=== PATIENT | male | born 1935 | race Caucasian/White ===

== ENCOUNTER 2021-10-04 14:57 | Inpatient (IN) | payer MEDICARE ==
[~2021-10-04] VITALS: Ht 185.4 cm; Wt 83.0 kg
[2021-10-04 15:41] LABS: BASOPHIL # 0.1 10^3/uL (0.0-0.1); BASOPHIL % 0.5 % (0.0-0.2); EOSINOPHIL # 0.2 10^3/uL (0.0-0.2); EOSINOPHIL % 1.7 % (0.0-5.0); LYMPHOCYTES # 1.75 10^3/uL1 (1.0-4.8); LYMPHOCYTES % 18.4 % (24.0-44.0); MEAN CORP HGB 31.8 pg (26-34); MONOCYTES # 0.8 10^3/uL (0.3-0.8); MONOCYTES % 8.7 % (5.0-12.0); NEUTROPHIL # 6.7 10^3/uL (1.8-7.7); NEUTROPHILS % 70.4 % (41.0-85.0); PLATELET COUNT 152 10^3/uL (150-400); RED CELL DISTRIBUTION WIDTH 13.1 % (11.5-14.5)
[2021-10-04 15:43] LABS: BILIRUBIN,URINE NEGATIVE (NEGATIVE); UROBILINOGEN,URINE 0.2 E.U./dL (0.2)
[2021-10-04 15:59] LABS: CARBON DIOXIDE 28.5 mmol/L (20.0-32)
--- NOTE | 2021-10-05 09:24 | PCM.EKG ---
[facility] Test Date: 2021-10-04 Test Time: 15:58:25 Pat Name: SHAYY STEELE Department: Room: Gender: M Research Associate Quality Control Qc: 0820 : 1935 Requested By: CIERA SCHMITT Order Number: [id number] Reading MD: Measurements Intervals Iraan Rate: 57 P: 17 MA: 319 QRS: -54 QRSD: 83 T: 60 QT: 420 QTc: 409 Interpretive Statements Sinus rhythm Prolonged MA interval Abnormal R-wave progression, early transition Inferior infarct, old Baseline wander in lead(s) V6 No previous ECG available for comparison Please click the below link to view image of tracing.
[2021-10-05] MEDS ORDERED: OMEG-69 PO (10:43)
[2021-10-05] MEDS ORDERED: VITA25006 PO (10:43)
[2021-10-05] MEDS ORDERED: APIX5TAB PO (10:43)
[2021-10-05] MEDS ORDERED: NAPR220C2 PO (10:43)
[2021-10-05] MEDS ORDERED: ACET325T12 PO (10:43)
[2021-10-09] VITALS (9 sets, daily range): BP systolic 100–166; BP diastolic 50–74
[2021-10-09] MEDS ORDERED: ANCEF 3 GM in NS 100ML 100 ML IV ONE (07:00)
[2021-10-09] MEDS ORDERED: LACTATED RINGERS 1,000 ML IV SCH ×2 (07:00→10:00)
[2021-10-09] MEDS ORDERED: BACTROBAN OINTMENT TP ONE (07:00)
[2021-10-09] MEDS ORDERED: CELEBREX PO ONE (08:20)
[2021-10-09] MEDS ORDERED: DECADRON IV ONE (08:20)
[2021-10-09] MEDS ORDERED: OFIRMEV IV ONE (08:20)
[2021-10-09] MEDS ORDERED: ULTRAM PO ONE (08:20)
[2021-10-09] MEDS ORDERED: NEURONTIN PO ONE (08:20)
[2021-10-09] MEDS ORDERED: ULTRAM PO PRN ×2 (10:00)
[2021-10-09] MEDS ORDERED: ZOFRAN IV PRN (10:00)
--- NOTE | 2021-10-09 12:25 | OPH ---
DATE OF SURGERY: 10/09/2021 DICTATOR NAME: Giacomo Boateng MD PREOPERATIVE DIAGNOSIS: Osteoarthritis of the right hip. POSTOPERATIVE DIAGNOSIS: Osteoarthritis of the right hip. OPERATIVE PROCEDURE: Right total hip arthroplasty using Medacta AMIS size 7 cemented femoral stem, a size 62 Versafit acetabular cup, a 28 mm ceramic head with a -3.5 neck length. SURGEON: Giacomo Boateng MD ANESTHESIA: Spinal. BLOOD LOSS: 600. DRAINS: None. DESCRIPTION OF INDICATIONS: The patient is an 86-year-old male who was at home with his and having pain about the right hip off and on for several years, but in the last year, the right hip pain has gotten much worse. He complains of pain with just household ambulation and limping. He has to use a walker and a cane to ambulate. He is on Eliquis and can only take Tylenol for the pain. Exam shows that he got about a 30-degree hip flexion contracture. There is no internal rotation and about 30 degrees of external rotation with pain. The x-ray showed that he is circumferentially [id number] about the right hip. He was taken to the operating room today for right total hip arthroplasty for pain relief. DESCRIPTION OF PROCEDURE: The patient was placed in the operating table in the supine position after being given a spinal anesthetic. Right foot and ankle were well padded and placed in the traction boot. Right lower extremity was then sterilely prepped and draped. The patient had the anterior incision made about the hip. The incision was taken through the skin and the subcutaneous tissues. Tensor fascia was opened in line with the skin incision. The right knee muscle belly was retracted posteriorly. The rectus fascia was opened and the rectus was retracted medially. The circumflex vessels were then identified and coagulated with the Aquamantys device. The capsular incision was then made and the capsule was retracted proximally and posteriorly. A femoral neck cut was then made with the power saw and the femoral head was removed with a corkscrew device. The patient had the labrum excised. The posterior ligaments were released. The acetabulum was then sequentially reamed up to a size 62. A 62 trial had a good fit clinically as well as radiographically. The trial component was removed and the wounds were irrigated. He had some small cysts that were curetted and bone grafted. A size 62 Versafit cup was then impacted into position. C-arm views showed satisfactory tilt and version. The patient then had the hip placed in maximal external rotation as well as hyperextension. The canal was opened with a curette. The box chisel was then used and then the proximal opening reamers were used. The patient had the canal sequentially rasped up to a size 7. The size 7 trial was used and we used a -3.5 neck and a 28 mm head with a 62 liner. The hip had good internal and external rotation with no laxity. The C-arm view showed satisfactory sizing and alignment of the components as well as leg lengths. The patient then had the trial components removed from the hip. The wounds were irrigated. The canal was cleared with a regular canal brush and then subsequently with the irrigating canal brush. A large cement restrictor was placed at 13 cm below the calcar cut. The canal again was irrigated with the irrigating canal brush and then dried with a tampon device. The cement was then introduced and packed. A size 7 AMIS stem was then cemented into position. Once the cement was hardened, then the 28 mm ceramic head, -3.5 neck length and the 62 liner were impacted onto the Ramirez taper neck. The hip was reduced. Again, there was good stability clinically and radiographically, the alignment and the sizing of the components appeared to be satisfactory. Wounds were then irrigated with Betadine-containing solution for 3 minutes. The capsule was closed after the Betadine was irrigated from the wound with a #2 PDS in interrupted manner. The tensor fascia was closed with a #2 barbed PDS in a running manner. The subcutaneous was closed with a barbed 2-0 Monocryl. The skin was closed with shavonne and a suction Prevena type dressing was applied. The patient was sent to recovery room in stable condition. Giacomo Boateng MD DR: MARY/DONALDO RAMSO: [id number] RECEIPT: [id number]
[2021-10-09] MEDS: TYLENOL PO SCH ×3 (13:12→23:24)
[2021-10-09] MEDS: ANCEF 2 GM/D5W 50ML IV SCH ×2 (13:39→21:18)
--- NOTE | 2021-10-09 14:48 | NUR ---
DISCHARGE PLAN - [facility] [email or web address] FOLLOWING PATIENT'S ADMIT TO [facility] FOLLOWING SURGERY. PATIENT CURRENTLY LIVES@HOME WITH SPOUSE AND DENIES HAVING A WALKER. CM OFFERED TO ORDER PATIENT A WALKER AND PATIENT AGREEABLE. PATIENT REQUEST TO GET WALKER HERE IN [place]. PATIENT CURRENTLY SEE'S Peyton BUTLER IN [place] FOR PCP. PATIENT REQUEST CM RETURN AFTER PATIENT'S SPOUSE COMES BACK AND DISCUSS DISCHARGE PLANS. CM FAXED REFERRAL TO [facility] FOR WALKER. FAX CONFIRMATION CONFIRMED COMPLETE. CM CONTACTED [email or web address] AND INFORMED OF GIAN JONES. Addendum: 10/09/21 at 1500 by Susana Harris RN,Case Managegema RN CM CONTACTED [facility] AND INFORMED THAT PATIENT SEE'S LAZ SHAW. APPT MADE FOR OCTOBER 23, 2021@1:15PM. CM WILL FAX PATIENT'S CLINICALS AFTER DISCHARGE TO [facility]@[phone] AFTER DISCHARGE. CM ENTERED APPT TIME IN PATIENT'S VISIT REPORT FOR [email or web address]. Addendum: 10/10/21 at 1752 by Susana Harris RN,Case Managemen RN [email or web address] THIS AM AND SPOKE WITH PATIENT AND SPOUSE AND OT THERAPIST ELENA COFFMAN ABOUT DISCHARGE PLANS AND NEEDS. PATIENT CURRENTLY LIVES@HOME WITH SPOUSE IN [place], [place] AND IND WITH ADL PRIOR TO SURGERY. PATIENT SEEN YESTERDAY AND REQUESTED WALKER. [facility] DELIVERED PATIENT WALKER TODAY. PATIENT AND SPOUSE INFORMED OF F/U APPT MADE WITH LAZ SHAW NP FOR 10/23/21@1:15. CM WROTE APPT TIME ON PATIENT'S MARKER BOARD. PATIENT AGREEABLE WITH APPT TIME. PATIENT AND SPOUSE EDUCATED ON RESOURCES AND REQUEST [facility] OUT OF [place]. PATIENT'S SPOUSE SIGNS [facility] CHOICE LETTER AND PRIME VENDOR OF CHOICE LETTER FOR CHART. CM CONTACTED [facility] AND INFORMED [facility] OF NEW REFERRAL. [facility] WILL CHECK TO SEE IF PATIENT IS IN NETWORK AND LET CM KNOW. CM FAXED INITIAL CLINICALS TO [facility]@[phone]. FAX CONFIRMATION CONFIRMED COMPLETE. CM WILL CONTINUE TO MONITOR. Addendum: 10/11/21 at 1412 by Susana Harris RN,Case Managemen RN [facility] NOTIFIED CM THAT PATIENT WAS OUT OF NETWORK AND THEY COULD NOT ACCEPT PATIENT. CM CONTACTED [employer] AND FAXED FACE SHEET TO [email or web address]. CM RECEIVED PHONE CALL FROM [employer] AND PATIENT IS OUT OF NETWORK WITH INSURANCE. CM FAXED [facility] AND FAXED INITIAL CLINICALS TO [facility]. AWAITING TO SEE IF PATIENT IS IN NETWORK THIS AM. [email or web address] THIS AM AND VISITED WITH PATIENT AND SPOUSE AND INFORMED THEM THAT [facility] DID NOT TAKE PATIENT'S INSURANCE. PATIENT AND SPOUSE AGREEABLE FOR CM TO ASSIST WITH HOME HEALTH THAT WORKS WITH PATIENT'S INSURANCE. PATIENT REPORTS THAT [facility] DELIVERED PATIENT'S NEW WALKER YESTERDAY. CM INFORMED PATIENT AND SPOUSE THATIF [facility] WAS OUT OF NETWORK THAT CM WOULD NOTIFY PATIENT AND SPOUSE. PATIENT AND SPOUSE REMINDED OF F/U APPT WITH LAZ SHAW NP ON 10/23/21@1:15. PATIENT AND SPOUSE DENY ANY OTHER DISCHARGE NEEDS. PREPARING FOR DISCHARGE THIS AM. CM CONTACTED [facility] THIS AFTERNOON AND SPOKE WITH ALVINA AND SHE CHECKED TO MAKE SURE THAT THEY HAD ACCEPTED PATIENT. ALVINA PHONED CM BACK AND INFORMED THAT PATIENT WAS SET UP WITH [facility] AND THEY WOULD NOTIFY PATIENT AND SET UP HOME HEALTH VISIT. CM FAXED DISCHARGE CLINICALS TO [facility]@[phone]. FAX CONFIRMATION CONFIRMED COMPLETE. CM FAXED COMPLETE CLINICALS TO LAZ SHAW@[phone] WITH NOTIFICATION OF HOME HEALTH WITH [facility] AND F/U APPT. FAX CONFIRMATION CONFIRMED COMPLETE.
[2021-10-09 21:33] LABS: MEAN CORP HGB 32.1 pg (26-34); RED CELL DISTRIBUTION WIDTH 12.9 % (11.5-14.5)
--- NOTE | 2021-10-09 22:09 | DIREP ---
PROCEDURE:XRAY HIP MIN 2VW-RT COMPARISON:None. INDICATIONS:POST OP TOTAL RT HIP FINDINGS: BONES:Right hip cedrick arthroplasty. No visible displaced fracture. Small enthesophyte at the ischial tuberosities. Small left femoral head and acetabular osteophytes. Small left greater trochanter enthesophyte. JOINTS:No dislocation SOFT TISSUES:Bubbles of gas in the soft tissues around the right hip and lateral right hip skin shavonne consistent with recent surgery. OTHER:No additional findings. CONCLUSION:Changes of recent hip arthroplasty. Moderate left hip arthropathy. Dictated by: Gurdeep Munoz M.D. on 10/09/2021 at 10:07 PM
--- NOTE | 2021-10-09 22:10 | PCM.HP ---
History of Present Illness History of Present Illness 86 year old male presents with complaints of right hip pain for the last year, worsening recently. He states he has pain to the hip "all the time". He complains of pain with household ambulation and limping. He uses a walker while out in public and a cane at home due to the pain. He uses tylenol for pain with minimal relief. He cannot take NSAIDs because he is on blood thinners currently. Past Medical History Heme/Onc: Other (History of blood clots "about 6 months ago" - per patient) Past Surgical History: Other (Cardiac angioplasty with stent placement) Past Social History Smoke: 1 pack per day Alcohol: none Drugs: None Lives: with Family Review of Systems Constitutional: No: Fever, Chills, Sweats, Weakness, Malaise, Other Eyes: No: Pain, Vision change, Conjunctivae inflammation, Eyelid inflammation, Other, Redness ENT: No: Ear pain, Ear discharge, Nose pain, Nose discharge, Nose congestion, Mouth pain, Mouth swelling, Throat pain, Throat swelling, Other Respiratory: No: Cough, Dry, Shortness of breath, SOB with excertion, Wheezing, Hemoptysis, Pleuritic Pain, Sputum, Wheezing, Other Cardiovascular: No: Chest Pain, Palpitations, Orthopnea, Paroxysmal Noc. Dyspnea, Edema, Lt Headedness, Other Gastrointestinal: No: Nausea, Vomiting, Abdominal Pain, Diarrhea, Constipation, Melena, Hematochezia, Other Genitourinary: No Dysuria, No Frequency, No Incontinence, No Hematuria, No Retention, No Other Musculoskeletal: leg pain (RLE pain) Skin: No: Rash, Lesions, Jaundice, Bruising, Other Neurological: No: Weakness, Numbness, Incoordination, Change in speech, Confusion, Seizures, Other Allergies: Coded Allergies: No Known Allergies (Unverified , 10/05/21) Scheduled Apixaban (Eliquis), 5 MG PO BID, (Reported) Poteet-3 Fatty Acids/Fish Oil (Fish Oil 1,000 Mg Softgel), 1 CAP PO QD, (Reported) Vitamin D3/Folic Acid (Noxifol-D3 2,500 Unit-1 mg Tab), 1 TAB PO QD, (Reported) Scheduled PRN Acetaminophen (Tylenol), 650 MG PO BID PRN for PAIN 4 - 6, (Reported) Naproxen Sodium (Aleve), 220 MG PO DAILY24 PRN for PAIN 4 - 6, (Reported) VTE VTE Risk Total Score: 3 VTE Risk Score VTE Risk: Score 0-1 = Low Risk (Aggressive mobilization; early ambulation; no VTE prophylaxis required) Score 2: Moderate Risk (Intermittent/Pneumatic Compression Device OR Lovenox/Heparin/Coumadin) Score 3-4: High Risk (Intermittent/Pneumatic Compression Device AND Lovenox/Heparin/Coumadin) Score > or =5: Highest Risk (Intermittent/Pneumatic Compression Device AND Lovenox/Heparin/Coumadin) Antico:Hep/LMWH/Coum/Xarelto: Yes Mechanical device ordered: Yes VTE VTE Present on Admission: No Currently receiving anticoagul: Yes VTE Risk Total Score: 3 Exam Vital Signs Vital Signs Date Time Temp Pulse Resp B/P (MAP) Pulse Ox O2 Delivery O2 Flow Rate FiO2 10/09/21 21:02 60 16 94 Nasal Cannula* 2 N/A Non-Rebreather 10/09/21 20:23 97.4 100/50 (67) General Appearance: Alert, Oriented X3, Cooperative HEENT: Atraumatic, PERRLA, Other Respiratory: Clear to auscultation, Normal air movement Cardiovascular: Regular rate, Normal S1, Normal S2 Abdominal: Normal bowel sounds, Soft, No tenderness Extremities: No clubbing, No cyanosis, Normal pulses, Other (He has 130 degrees of active forward felxion about the hip, 10-20 degrees of internal and external rotation of the hip with quite a bit of pain. He has a hip flexion contracture of about 20 degrees as well. He has a positive limp.) Skin: No rash, No breakdown, No lesions Neuro: Normal speech, Normal tone, Sensation intact, Cranial nerves 3-12 NL Psych/Mental Status: Mental status NL, Mood NL Assessment/Plan Assessment/Plan Assessment/Plan Radiology: Xrays show [id number] about the right hip circumferentially. There is some shortening to the right leg radiographically. Assessment: Osteoarthritis of the right hip Plan: Right Total Hip Arthroplasty Problems: (1) Osteoarthritis of right hip Status: Chronic ICD Code: M16.11 - Unilateral primary osteoarthritis, right hip SNOMED: [id number] Patient History: Alzheimer's disease G8 SISTER, , Age:60 years and older FH: arthritis G8 BROTHER No known health problems G8 BROTHER G8 BROTHER, , Age:Childhood 19 CHILD 19 CHILD No Family History of: Asthma Cerebrovascular disorder Chronic obstructive pulmonary disease Congestive heart failure Diabetes insipidus Diabetes mellitus Hypertension Parkinson's disease MOLLY CIFUENTES Oct 09, 2021 22:10
[2021-10-10 01:13] VITALS: BP 102/59
[2021-10-10 04:42] LABS: MEAN CORP HGB 32.2 pg (26-34)
[2021-10-10] MEDS: ANCEF 2 GM/D5W 50ML IV SCH (05:24)
[2021-10-10] MEDS: TYLENOL PO SCH ×4 (05:25→23:58)
[2021-10-10 05:36] VITALS: BP 109/60
[2021-10-10 07:05] VITALS: BP 113/57
[2021-10-10] MEDS: COLACE PO SCH (08:16)
[2021-10-10] MEDS: PEPCID PO SCH (08:16)
--- NOTE | 2021-10-10 08:50 | PRM.PN ---
Subjective Subjective Date: Oct 10, 2021 Time: 08:49 Subjective Pain ok VSS UP in chair HGB 13.4 NVM+ Start PT Patient History: Alzheimer's disease G8 SISTER, , Age:60 years and older FH: arthritis G8 BROTHER No known health problems G8 BROTHER G8 BROTHER, , Age:Childhood 19 CHILD 19 CHILD No Family History of: Asthma Cerebrovascular disorder Chronic obstructive pulmonary disease Congestive heart failure Diabetes insipidus Diabetes mellitus Hypertension Parkinson's disease VTE VTE Risk Total Score: 3 VTE Risk Score VTE Risk: Score 0-1 = Low Risk (Aggressive mobilization; early ambulation; no VTE prophylaxis required) Score 2: Moderate Risk (Intermittent/Pneumatic Compression Device OR Lovenox/Heparin/Coumadin) Score 3-4: High Risk (Intermittent/Pneumatic Compression Device AND Lovenox/Heparin/Coumadin) Score > or =5: Highest Risk (Intermittent/Pneumatic Compression Device AND Lovenox/Heparin/Coumadin) Antico:Hep/LMWH/Coum/Xarelto: Yes Mechanical device ordered: Yes Review of Systems Constitutional: No: Fever, Chills, Sweats, Weakness, Malaise, Other Eyes: No: Pain, Vision change, Conjunctivae inflammation, Eyelid inflammation, Other, Redness ENT: No: Ear pain, Ear discharge, Nose pain, Nose discharge, Nose congestion, Mouth pain, Mouth swelling, Throat pain, Throat swelling, Other Respiratory: No: Cough, Dry, Shortness of breath, SOB with excertion, Wheezing, Hemoptysis, Pleuritic Pain, Sputum, Wheezing, Other Cardiovascular: No: Chest Pain, Palpitations, Orthopnea, Paroxysmal Noc. Dyspnea, Edema, Lt Headedness, Other Gastrointestinal: No: Nausea, Vomiting, Abdominal Pain, Diarrhea, Constipation, Melena, Hematochezia, Other Genitourinary: No Dysuria, No Frequency, No Incontinence, No Hematuria, No Retention, No Other Musculoskeletal: leg pain (RLE pain) Skin: No: Rash, Lesions, Jaundice, Bruising, Other Neurological: No: Weakness, Numbness, Incoordination, Change in speech, Confusion, Seizures, Other Allergies: Coded Allergies: No Known Allergies (Unverified , 10/05/21) Scheduled Apixaban (Eliquis), 5 MG PO BID, (Reported) Avon-3 Fatty Acids/Fish Oil (Fish Oil 1,000 Mg Softgel), 1 CAP PO QD, (Reported) Vitamin D3/Folic Acid (Noxifol-D3 2,500 Unit-1 mg Tab), 1 TAB PO QD, (Reported) Scheduled PRN Acetaminophen (Tylenol), 650 MG PO BID PRN for PAIN 4 - 6, (Reported) Naproxen Sodium (Aleve), 220 MG PO DAILY24 PRN for PAIN 4 - 6, (Reported) Objective Vitals and I/O Vital Sign - Last 24 Hours 10/09/21 10/09/21 10/09/21 10/09/21 11:48 11:48 11:50 11:55 Temp 97.1 Pulse 50 49 47 Resp 14 14 14 B/P (MAP) 102/53 (69) 106/66 (79) 120/58 (78) Pulse Ox 98 99 100 O2 Delivery Non-Rebreather Non-Rebreather Non-Rebreather O2 Flow Rate 15.00 15.00 15.00 15.00 10/09/21 10/09/21 10/09/21 10/09/21 12:05 12:15 12:55 13:59 Temp 97.2 Pulse 54 48 58 Resp 16 16 16 B/P (MAP) 122/64 (83) 117/63 (81) 114/56 (75) Pulse Ox 100 100 93 O2 Delivery Non-Rebreather Non-Rebreather Nasal Cannula Nasal Cannula* O2 Flow Rate 15.00 15.00 2.00 2 FiO2 28 10/09/21 10/09/21 10/09/21 10/09/21 14:27 14:27 14:45 17:15 Pulse 67 Resp 16 16 18 B/P (MAP) 104/57 (73) Pulse Ox 2 90 O2 Delivery Nasal Cannula* Nasal Cannula* O2 Flow Rate 2 2 FiO2 28 28 10/09/21 10/09/21 10/09/21 10/10/21 20:23 21:02 23:58 01:13 Temp 97.4 97.1 Pulse 55 60 58 Resp 16 16 15 B/P (MAP) 100/50 (67) 102/59 (73) Pulse Ox 90 94 89 O2 Delivery Nasal Cannula* Nasal Cannula* Nasal Cannula Nasal Cannula* Non-Rebreather O2 Flow Rate 3 2 3.00 3 FiO2 32 N/A 32 10/10/21 10/10/21 10/10/21 10/10/21 05:36 07:05 07:43 08:30 Temp 97.9 98.7 Pulse 58 57 88 Resp 16 18 16 B/P (MAP) 109/60 (76) 113/57 (75) Pulse Ox 95 91 90 O2 Delivery Nasal Cannula* Room Air* Room Air Room Air* Nasal Cannula* Non-Rebreather O2 Flow Rate 3 0 0 FiO2 32 21 N/A Intake and Output 10/10/21 07:00 Intake Total 7662 ml Output Total 850 ml Balance 6812 ml General: Alert, Oriented X3, Cooperative HEENT: Atraumatic, PERRLA, Other Lungs: Clear to auscultation, Normal air movement Heart: Regular rate, Normal S1, Normal S2 Abdomen: Normal bowel sounds, Soft, No tenderness Extremities: No clubbing, No cyanosis, Normal pulses, Other (He has 130 degrees of active forward felxion about the hip, 10-20 degrees of internal and external rotation of the hip with quite a bit of pain. He has a hip flexion contracture of about 20 degrees as well. He has a positive limp.) Neuro: Normal speech, Normal tone, Sensation intact, Cranial nerves 3-12 NL Psych/Mental Status: Mental status NL, Mood NL All Results(Lab/Rad) Laboratory Tests Test 10/09/21 21:20 10/10/21 04:09 White Blood Count 17.4 10^3/uL 16.7 10^3/uL Red Blood Count 4.43 10^6/uL 4.16 10^6/uL Hemoglobin 14.2 g/dL 13.4 g/dL Hematocrit 42.5 % 39.4 % Mean Corpuscular Volume 95.9 fL 94.7 fL Mean Corpuscular Hemoglobin 32.1 pg 32.2 pg Mean Corpuscular Hemoglobin Concent 33.4 g/dL 34.0 g/dL Red Cell Distribution Width 12.9 % 13.0 % Platelet Count 130 10^3/uL 138 10^3/uL Mean Platelet Volume 9.4 fL 9.8 fL Current Medications Medications (Trade) Dose Ordered Sig/Perry Route PRN Reason Start Time Stop Time Status Last Admin Dose Admin Cefazolin Sodium 3 gm/Sodium Chloride 100 ml @ 100 mls/hr OT ONCE IV 10/09/21 07:00 10/09/21 12:51 DC 10/09/21 08:43 Mupirocin (Bactroban Ointment) 1 gm OT ONCE TP 10/09/21 07:00 10/09/21 12:49 DC 10/09/21 08:14 Celecoxib (Celebrex) 400 mg OT ONCE PO 10/09/21 08:20 10/09/21 12:49 DC 10/09/21 08:26 Gabapentin (Neurontin) 600 mg OT ONCE PO 10/09/21 08:20 10/09/21 12:49 DC 10/09/21 08:27 Tramadol HCl (Ultram) 100 mg OT ONCE PO 10/09/21 08:20 10/09/21 12:50 DC 10/09/21 08:28 Acetaminophen (Ofirmev) 500 mg OT ONCE IV 10/09/21 08:20 10/09/21 12:50 DC 10/09/21 08:29 Tramadol HCl (Ultram) 50 mg Q6H PRN PO PAIN 1 - 3 10/09/21 10:00 11/08/21 09:59 Tramadol HCl (Ultram) 100 mg Q6H PRN PO PAIN 4 - 6 10/09/21 10:00 11/08/21 09:59 Docusate Sodium (Colace) 100 mg DAILY PO 10/10/21 09:00 11/09/21 08:59 10/10/21 08:16 Cefazolin Sodium/ Dextrose (Ancef 2 Gm/D5W 50ml) 2 gm Q8 IV 10/09/21 14:00 10/10/21 06:01 DC 10/10/21 05:24 Famotidine (Pepcid) 20 mg DAILY PO 10/10/21 09:00 11/09/21 08:59 10/10/21 08:16 Ketorolac Tromethamine (Toradol) 15 mg Q6H PRN IV PAIN 7 - 10 10/09/21 10:00 10/14/21 09:59 Acetaminophen (Tylenol) 1,000 mg Q6HR PO 10/09/21 12:00 11/08/21 11:59 10/10/21 05:25 Ondansetron HCl (Zofran) 4 mg Q4H PRN IV NAUSEA / VOMITING 10/09/21 10:00 11/08/21 09:59 Course Sepsis Screening Results: Posi: POSITIVE Sepsis Qualifier/Stage: SEPSIS RISK Vitals & review Data Vital Sign - Last 24 Hours 10/09/21 10/09/21 10/09/21 10/09/21 11:48 11:48 11:50 11:55 Temp 97.1 Pulse 50 49 47 Resp 14 14 14 B/P (MAP) 102/53 (69) 106/66 (79) 120/58 (78) Pulse Ox 98 99 100 O2 Delivery Non-Rebreather Non-Rebreather Non-Rebreather O2 Flow Rate 15.00 15.00 15.00 15.00 10/09/21 10/09/21 10/09/21 10/09/21 12:05 12:15 12:55 13:59 Temp 97.2 Pulse 54 48 58 Resp 16 16 16 B/P (MAP) 122/64 (83) 117/63 (81) 114/56 (75) Pulse Ox 100 100 93 O2 Delivery Non-Rebreather Non-Rebreather Nasal Cannula Nasal Cannula* O2 Flow Rate 15.00 15.00 2.00 2 FiO2 28 10/09/21 10/09/21 10/09/21 10/09/21 14:27 14:27 14:45 17:15 Pulse 67 Resp 16 16 18 B/P (MAP) 104/57 (73) Pulse Ox 2 90 O2 Delivery Nasal Cannula* Nasal Cannula* O2 Flow Rate 2 2 FiO2 28 28 10/09/21 10/09/21 10/09/21 10/10/21 20:23 21:02 23:58 01:13 Temp 97.4 97.1 Pulse 55 60 58 Resp 16 16 15 B/P (MAP) 100/50 (67) 102/59 (73) Pulse Ox 90 94 89 O2 Delivery Nasal Cannula* Nasal Cannula* Nasal Cannula Nasal Cannula* Non-Rebreather O2 Flow Rate 3 2 3.00 3 FiO2 32 N/A 32 10/10/21 10/10/21 10/10/21 10/10/21 05:36 07:05 07:43 08:30 Temp 97.9 98.7 Pulse 58 57 88 Resp 16 18 16 B/P (MAP) 109/60 (76) 113/57 (75) Pulse Ox 95 91 90 O2 Delivery Nasal Cannula* Room Air* Room Air Room Air* Nasal Cannula* Non-Rebreather O2 Flow Rate 3 0 0 FiO2 32 21 N/A Intake and Output 10/10/21 07:00 Intake Total 7662 ml Output Total 850 ml Balance 6812 ml Laboratory Tests Test 10/09/21 21:20 10/10/21 04:09 White Blood Count 17.4 10^3/uL 16.7 10^3/uL Red Blood Count 4.43 10^6/uL 4.16 10^6/uL Hemoglobin 14.2 g/dL 13.4 g/dL Hematocrit 42.5 % 39.4 % Mean Corpuscular Volume 95.9 fL 94.7 fL Mean Corpuscular Hemoglobin 32.1 pg 32.2 pg Mean Corpuscular Hemoglobin Concent 33.4 g/dL 34.0 g/dL Red Cell Distribution Width 12.9 % 13.0 % Platelet Count 130 10^3/uL 138 10^3/uL Mean Platelet Volume 9.4 fL 9.8 fL Current Medications Medications (Trade) Dose Ordered Sig/Perry PRN Reason Start Time Stop Time Status Last Admin Acetaminophen (Tylenol) 1,000 mg Q6HR 10/09/21 12:00 11/08/21 11:59 10/10/21 05:25 Docusate Sodium (Colace) 100 mg DAILY 10/10/21 09:00 11/09/21 08:59 10/10/21 08:16 Famotidine (Pepcid) 20 mg DAILY 10/10/21 09:00 11/09/21 08:59 10/10/21 08:16 Ketorolac Tromethamine (Toradol) 15 mg Q6H PRN PAIN 7 - 10 10/09/21 10:00 10/14/21 09:59 Ondansetron HCl (Zofran) 4 mg Q4H PRN NAUSEA / VOMITING 10/09/21 10:00 11/08/21 09:59 Tramadol HCl (Ultram) 50 mg Q6H PRN PAIN 1 - 3 10/09/21 10:00 11/08/21 09:59 Tramadol HCl (Ultram) 100 mg Q6H PRN PAIN 4 - 6 10/09/21 10:00 11/08/21 09:59 LEVEL 1 SEPSIS INFECTION CRITE: ABX Therapy, Recent Invasive Procedure LEVEL 2-SIRS (LIST ALL THAT AP: WBC>[id number] Cardiovascular Evidence: Not Assessed or None Hematologic Evidence: None/Not assessed Hepatic Evidence: None/Not assessed Metabolic Evidence: None/Not assessed Neurological Evidence: None/Not assessed Respiratory Evidence: Need for O2 to keep>90%, O2 SAT<90room air Renal Evidence: None/Not assessed O2 Sat by Pulse Oximetry: 90 Oxygen Flow Rate: 3.00 Assessment/Plan Assessment/Plan Assessment/Plan Radiology: Xrays show ovtc-rx-fokr about the right hip circumferentially. There is some shortening to the right leg radiographically. Assessment: Osteoarthritis of the right hip Plan: Right Total Hip Arthroplasty CIERA SCHMITT MD Oct 10, 2021 08:50
--- NOTE | 2021-10-10 10:09 | NUR ---
[employer] CATHE[employer] JANET'Lisa.
[2021-10-10 11:16] VITALS: BP 104/56
[2021-10-10 15:18] VITALS: BP 116/54
[2021-10-10] MEDS: TORADOL IV PRN (16:46)
--- NOTE | 2021-10-10 19:47 | NUR ---
Peyton Tompkins called and notified of pt having muscle spasms. Valium 5mg po Q6hrs PRN ordered and for Bed Alarm.
[2021-10-10 19:56] VITALS: BP 105/55
[2021-10-10] MEDS ORDERED: VALIUM PO PRN (20:00)
[2021-10-11 00:21] VITALS: BP 128/63
[2021-10-11 04:14] VITALS: BP 121/65
[2021-10-11 04:48] LABS: MEAN CORP HGB 31.8 pg (26-34); RED CELL DISTRIBUTION WIDTH 13.1 % (11.5-14.5)
[2021-10-11] MEDS: TYLENOL PO SCH (05:56)
[2021-10-11] MEDS: TORADOL IV PRN (07:04)
[2021-10-11 07:22] VITALS: BP 115/55
[2021-10-11] MEDS: COLACE PO SCH (09:20)
[2021-10-11] MEDS: PEPCID PO SCH (09:21)
[2021-10-11] MEDS ORDERED: ELIQUIS PO SCH (09:30)
[2021-10-11] MEDS ORDERED: ACET500T73 PO (11:21)
[2021-10-11] MEDS ORDERED: TRAM50TA PO (11:21)
[2021-10-11 11:25] VITALS: BP 115/61
--- NOTE | 2021-10-11 11:26 | NUR ---
PRESCRIPTIONS PRESCRIPTIONS CALLED INTO [facility] IN [place], [place] BY THIS NURSE AT THIS TIME.
--- NOTE | 2021-10-11 11:32 | PRM.DC ---
Discharge Summary Date of Discharge: Oct 11, 2021 Time of Request to Discharge: 09:00 Patient History: Alzheimer's disease G8 SISTER, , Age:60 years and older FH: arthritis G8 BROTHER No known health problems G8 BROTHER G8 BROTHER, , Age:Childhood 21 CHILD 21 CHILD No Family History of: Asthma Cerebrovascular disorder Chronic obstructive pulmonary disease Congestive heart failure Diabetes insipidus Diabetes mellitus Hypertension Parkinson's disease Exam/Vitals Vital Signs Date Time Temp Pulse Resp B/P (MAP) Pulse Ox O2 Delivery O2 Flow Rate FiO2 10/11/21 09:06 88 16 92 Room Air* 0 21 10/11/21 07:22 98.2 115/55 (75) General: Alert, Oriented X3, Cooperative HEENT: Atraumatic, PERRLA Neck: Supple, No JVD Lungs: Clear to auscultation, Normal air movement Heart: Regular rate, Normal S1, Normal S2 Abdomen: Normal bowel sounds, Soft Extremities: No cyanosis, Normal pulses, Other ([place] wound vac in place over surgical incision to right hip) Skin: No rashes, No breakdown, No significant lesion Neuro: Normal speech, Normal tone, Sensation intact, Cranial nerves 3-12 NL Psych/Mental Status: Mental status NL, Mood NL Scheduled Acetaminophen (Acetaminophen), 2 TAB PO Q6HR Apixaban (Eliquis), 5 MG PO BID, (Reported) [place]-3 Fatty Acids/Fish Oil (Fish Oil 1,000 Mg Softgel), 1 CAP PO QD, (Reported) Vitamin D3/Folic Acid (Noxifol-D3 2,500 Unit-1 mg Tab), 1 TAB PO QD, (Reported) Scheduled PRN Tramadol Hcl (Tramadol Hcl), 1-2 TAB PO Q6HR PRN for PAIN 4 - 6 Discontinued Medications Acetaminophen (Tylenol), 650 MG PO BID PRN for PAIN 4 - 6, (Reported) Discontinued Reason: HOLD Naproxen Sodium (Aleve), 220 MG PO DAILY24 PRN for PAIN 4 - 6, (Reported) Discontinued Reason: HOLD Sepsis Evaluation @ Discharge Vital Sign - Last 24 Hours 10/09/21 10/09/21 10/09/21 10/09/21 11:48 11:48 11:50 11:55 Temp 97.1 Pulse 50 49 47 Resp 14 14 14 B/P (MAP) 102/53 (69) 106/66 (79) 120/58 (78) Pulse Ox 98 99 100 O2 Delivery Non-Rebreather Non-Rebreather Non-Rebreather O2 Flow Rate 15.00 15.00 15.00 15.00 10/09/21 10/09/21 10/09/21 10/09/21 12:05 12:15 12:55 13:59 Temp 97.2 Pulse 54 48 58 Resp 16 16 16 B/P (MAP) 122/64 (83) 117/63 (81) 114/56 (75) Pulse Ox 100 100 93 O2 Delivery Non-Rebreather Non-Rebreather Nasal Cannula Nasal Cannula* O2 Flow Rate 15.00 15.00 2.00 2 FiO2 28 10/09/21 10/09/21 10/09/21 10/09/21 14:27 14:27 14:45 17:15 Pulse 67 Resp 16 16 18 B/P (MAP) 104/57 (73) Pulse Ox 2 90 O2 Delivery Nasal Cannula* Nasal Cannula* O2 Flow Rate 2 2 FiO2 28 28 10/09/21 10/09/21 10/09/21 10/10/21 20:23 21:02 23:58 01:13 Temp 97.4 97.1 Pulse 55 60 58 Resp 16 16 15 B/P (MAP) 100/50 (67) 102/59 (73) Pulse Ox 90 94 89 O2 Delivery Nasal Cannula* Nasal Cannula* Nasal Cannula Nasal Cannula* Non-Rebreather O2 Flow Rate 3 2 3.00 3 FiO2 32 N/A 32 10/10/21 10/10/21 10/10/21 10/10/21 05:36 07:05 07:43 08:30 Temp 97.9 98.7 Pulse 58 57 88 Resp 16 18 16 B/P (MAP) 109/60 (76) 113/57 (75) Pulse Ox 95 91 90 O2 Delivery Nasal Cannula* Room Air* Room Air Room Air* Nasal Cannula* Non-Rebreather O2 Flow Rate 3 0 0 FiO2 32 21 N/A Intake and Output 10/10/21 07:00 Intake Total 7662 ml Output Total 850 ml Balance 6812 ml Laboratory Tests Test 10/09/21 21:20 10/10/21 04:09 White Blood Count 17.4 10^3/uL 16.7 10^3/uL Red Blood Count 4.43 10^6/uL 4.16 10^6/uL Hemoglobin 14.2 g/dL 13.4 g/dL Hematocrit 42.5 % 39.4 % Mean Corpuscular Volume 95.9 fL 94.7 fL Mean Corpuscular Hemoglobin 32.1 pg 32.2 pg Mean Corpuscular Hemoglobin Concent 33.4 g/dL 34.0 g/dL Red Cell Distribution Width 12.9 % 13.0 % Platelet Count 130 10^3/uL 138 10^3/uL Mean Platelet Volume 9.4 fL 9.8 fL Current Medications Medications (Trade) Dose Ordered Sig/Perry PRN Reason Start Time Stop Time Status Last Admin Acetaminophen (Tylenol) 1,000 mg Q6HR 10/09/21 12:00 11/08/21 11:59 10/10/21 05:25 Docusate Sodium (Colace) 100 mg DAILY 10/10/21 09:00 11/09/21 08:59 10/10/21 08:16 Famotidine (Pepcid) 20 mg DAILY 10/10/21 09:00 11/09/21 08:59 10/10/21 08:16 Ketorolac Tromethamine (Toradol) 15 mg Q6H PRN PAIN 7 - 10 10/09/21 10:00 10/14/21 09:59 Ondansetron HCl (Zofran) 4 mg Q4H PRN NAUSEA / VOMITING 10/09/21 10:00 11/08/21 09:59 Tramadol HCl (Ultram) 50 mg Q6H PRN PAIN 1 - 3 10/09/21 10:00 11/08/21 09:59 Tramadol HCl (Ultram) 100 mg Q6H PRN PAIN 4 - 6 10/09/21 10:00 11/08/21 09:59 Course Sepsis Screening Results: Posi: NEGATIVE Sepsis Qualifier/Stage: NO DEFINITE RISK DATE SEEN BY PHYSICIAN: Oct 11, 2021 TIME SEEN BY PROVIDER: 08:45 Duration or Total Time Spent w: 20 mins Vitals & review Data Vital Sign - Last 24 Hours 10/09/21 10/09/21 10/09/21 10/09/21 11:48 11:48 11:50 11:55 Temp 97.1 Pulse 50 49 47 Resp 14 14 14 B/P (MAP) 102/53 (69) 106/66 (79) 120/58 (78) Pulse Ox 98 99 100 O2 Delivery Non-Rebreather Non-Rebreather Non-Rebreather O2 Flow Rate 15.00 15.00 15.00 15.00 10/09/21 10/09/21 10/09/21 10/09/21 12:05 12:15 12:55 13:59 Temp 97.2 Pulse 54 48 58 Resp 16 16 16 B/P (MAP) 122/64 (83) 117/63 (81) 114/56 (75) Pulse Ox 100 100 93 O2 Delivery Non-Rebreather Non-Rebreather Nasal Cannula Nasal Cannula* O2 Flow Rate 15.00 15.00 2.00 2 FiO2 28 10/09/21 10/09/21 10/09/21 10/09/21 14:27 14:27 14:45 17:15 Pulse 67 Resp 16 16 18 B/P (MAP) 104/57 (73) Pulse Ox 2 90 O2 Delivery Nasal Cannula* Nasal Cannula* O2 Flow Rate 2 2 FiO2 28 28 10/09/21 10/09/21 10/09/21 10/10/21 20:23 21:02 23:58 01:13 Temp 97.4 97.1 Pulse 55 60 58 Resp 16 16 15 B/P (MAP) 100/50 (67) 102/59 (73) Pulse Ox 90 94 89 O2 Delivery Nasal Cannula* Nasal Cannula* Nasal Cannula Nasal Cannula* Non-Rebreather O2 Flow Rate 3 2 3.00 3 FiO2 32 N/A 32 10/10/21 10/10/21 10/10/21 10/10/21 05:36 07:05 07:43 08:30 Temp 97.9 98.7 Pulse 58 57 88 Resp 16 18 16 B/P (MAP) 109/60 (76) 113/57 (75) Pulse Ox 95 91 90 O2 Delivery Nasal Cannula* Room Air* Room Air Room Air* Nasal Cannula* Non-Rebreather O2 Flow Rate 3 0 0 FiO2 32 21 N/A Intake and Output 10/10/21 07:00 Intake Total 7662 ml Output Total 850 ml Balance 6812 ml Laboratory Tests Test 10/09/21 21:20 10/10/21 04:09 White Blood Count 17.4 10^3/uL 16.7 10^3/uL Red Blood Count 4.43 10^6/uL 4.16 10^6/uL Hemoglobin 14.2 g/dL 13.4 g/dL Hematocrit 42.5 % 39.4 % Mean Corpuscular Volume 95.9 fL 94.7 fL Mean Corpuscular Hemoglobin 32.1 pg 32.2 pg Mean Corpuscular Hemoglobin Concent 33.4 g/dL 34.0 g/dL Red Cell Distribution Width 12.9 % 13.0 % Platelet Count 130 10^3/uL 138 10^3/uL Mean Platelet Volume 9.4 fL 9.8 fL Current Medications Medications (Trade) Dose Ordered Sig/Perry PRN Reason Start Time Stop Time Status Last Admin Acetaminophen (Tylenol) 1,000 mg Q6HR 10/09/21 12:00 11/08/21 11:59 10/10/21 05:25 Docusate Sodium (Colace) 100 mg DAILY 10/10/21 09:00 11/09/21 08:59 10/10/21 08:16 Famotidine (Pepcid) 20 mg DAILY 10/10/21 09:00 11/09/21 08:59 10/10/21 08:16 Ketorolac Tromethamine (Toradol) 15 mg Q6H PRN PAIN 7 - 10 10/09/21 10:00 10/14/21 09:59 Ondansetron HCl (Zofran) 4 mg Q4H PRN NAUSEA / VOMITING 10/09/21 10:00 11/08/21 09:59 Tramadol HCl (Ultram) 50 mg Q6H PRN PAIN 1 - 3 10/09/21 10:00 11/08/21 09:59 Tramadol HCl (Ultram) 100 mg Q6H PRN PAIN 4 - 6 10/09/21 10:00 11/08/21 09:59 LEVEL 1 SEPSIS INFECTION CRITE: Recent Invasive Procedure, None/Not assessed LEVEL 2-SIRS (LIST ALL THAT AP: [id number] Cardiovascular Evidence: Not Assessed or None Hematologic Evidence: None/Not assessed Hepatic Evidence: None/Not assessed Metabolic Evidence: None/Not assessed Neurological Evidence: None/Not assessed Respiratory Evidence: None/Not assessed Renal Evidence: None/Not assessed O2 Sat by Pulse Oximetry: 92 Oxygen Flow Rate: 0.00 Plan Problems: (1) Osteoarthritis of right hip Status: Resolved ICD Code: M16.11 - Unilateral primary osteoarthritis, right hip SNOMED: [id number] Discharge Date: Oct 11, 2021 Dicharge DX: R MARLEN Discharge Disposition: Stable Plan Patient doing well this AM, reports his pain has been well managed throughout the night, wanting to go home this morning Labs reviewed, remains stable Neurovascular exam intact He can be discharged home today Plan to follow up with Dr. Boateng Saturday10/16/[address] until next appointment Continue Eliquis twice a day Activity as tolerated with a walker at home Continue Tylenol 1000mg by mouth every 6 hours as needed for pain Continue Tramadol 50-100mg by mouth every 6 hours as needed for pain Plan for home health with PT/OT eval and treat MOLLY CIFUENTES Oct 11, 2021 11:32
--- NOTE | 2021-10-11 11:45 | NUR ---
DISCHARGE INSTRUCTIONS GIVEN TO PT AND SPOUSE, VOICED UNDERSTANDING ABOUT MEDS AND DOCTERS VISITS, DISCHARGE VIA WC ACCOMPANIED BY NURSING X2 TO PERSONAL VEHICLE
[2021-10-11 11:49] VITALS: BP 115/61
== END 2021-10-11 12:00 | disposition home health service (06) | DRG 470 ==
LOC: UNDOADMIN 14:57 → MS 14:57
PROVIDERS: ADMIT Orthopaedic Surgery; ATTEND Orthopaedic Surgery
PROC: 0SR9039 Replacement of Right Hip Joint with Ceramic Synthetic Substitute, Cemented, Open Approach (ICD-10-PCS; principal; 2021-10-09 08:43)
DX: M16.11 Unilateral primary osteoarthritis, right hip (principal); F17.210 Nicotine dependence, cigarettes, uncomplicated; M24.559 Contracture, unspecified hip; Z79.01 Long term (current) use of anticoagulants; Z86.718 Personal history of other venous thrombosis and embolism
CPT/HCPCS: 36415; 73502; 76000; 80053; 81001; 85025; 85027; 85610; 85730; 87070; 87077; 87086; 87186; 93005; 97162; C1713; G0378; J0690; J1885; J7120; 97530-GP; C1776

== ENCOUNTER → 2022-01-04 | Outpatient (CLI) | payer MEDICARE ==
[~2022-01-04] MED LIST: ACET325T12 PO; ACET500T73 PO; APIX5TAB PO; NAPR220C2 PO; OMEG-69 PO; TRAM50TA PO; VITA25006 PO
== END | disposition home or self-care (01) ==
LOC: LAB 09:59
PROVIDERS: ATTEND Internal Medicine Cardiovascular Disease
DX: R06.02 Shortness of breath (principal); Z86.711 Personal history of pulmonary embolism
CPT/HCPCS: 36415; 85379